=== PATIENT | female | born 1965 | race Caucasian/White ===

== ENCOUNTER 2017-03-13 17:50 | Observation (INO) | payer BC ==
[~2017-03-13] VITALS: Ht 167.6 cm; Wt 64.3 kg
[~2017-03-13 17:50] MED LIST: ALBUTEROL SULF8.5 GM IH; ESTROGEN; EVAMIST8.1 ML TP; LEVAQUIN750 MG PO; LORAZEPAM1 MG PO; MACROBID100 MG PO; PERCOCET 5/31 TABLET PO; SYNTHROID50 MCG PO; TYLENOL REGULA325 MG PO
[2017-03-13 18:48] LABS: EOSINOPHIL (%) 1.2 % (0-5); EOSINOPHIL COUNT 0.1 K/uL (0-0.3); HEMATOCRIT 37.8 % (36.0-46.0); IMMATURE GRANULOCYTE (%) 0.3 % (0.0-0.7); INSTRUMENT ABS NEUTROPHIL CT 5.9 K/uL; LYMPHOCYTE COUNT 0.3 K/uL (1.0-2.8); MCH 29.6 PG (29.0-34.0); MCHC 34.4 G/DL (30.0-36.0); MCV 86.1 FL (83-99); MEAN PLAT.VOLUME 8.8 uM^3 (9.5-12.4); MONOCYTE (%) 3.5 % (3-12); MONOCYTE COUNT 0.2 K/uL (0-0.8); NEUTROPHIL COUNT 5.9 K/uL (1.8-6.4); PLATELET COUNT 199 K/uL (156-360); RBC DIS.WIDTH-CV 11.5 % (11.8-14.6); RED BLOOD COUNT 4.39 M/uL (3.80-5.20); WHITE BLOOD COUNT 6.6 K/uL (4.1-10.2)
[2017-03-13 18:55] LABS: CHLORIDE 103 mEq/L (99-109); POTASSIUM 3.5 mEq/L (3.7-5.4); SODIUM 139 mEq/L (136-147)
[2017-03-13 18:57] LABS: GLUCOSE 107 mg/dL (70-99)
[2017-03-13 18:59] LABS: ANION GAP 12 MEQ/L (2-14); TOTAL BILIRUBIN 0.4 mg/dL (0.0-1.0)
[2017-03-13 19:01] LABS: ALKALINE PHOSPHATASE 77 IU/L (3-129); GFR ESTIMATE (CALCULATED) > 59 mL/min/
[2017-03-13 19:02] LABS: UREA NITROGEN (BUN) 11 mg/dL (9-23)
[2017-03-13 19:04] LABS: LIPASE 40 U/L (1.0-51.0)
[2017-03-13 19:27] LABS: ADD MIUA? YES; BILIRUBIN NEGATIVE; BLOOD SMALL; COLOR COLORLESS ((YELLOW)); GLUCOSE (STRIP) NEGATIVE; KETONES NEGATIVE; LEUKOCYTES NEGATIVE; NITRITE NEGATIVE; PROTEIN (STRIP) NEGATIVE; SPECIFIC GRAVITY 1.002 (1.000-1.030); UROBILINOGEN 0.2 MG/DL (0.2-1.0)
[2017-03-13 19:37] LABS: BACTERIA NONE SEEN /HPF; EPITHELIAL CELLS RARE /HPF; MUCUS NONE SEEN /LPF; RED BLOOD CELLS 0-5 /HPF (0-5); UCUL ADDED? NO; WHITE BLOOD CELLS 0-5 /HPF (0-5)
[2017-03-13] MEDS ORDERED: NITROFURANTOIN100 M3 PO (22:06)
[2017-03-13] MEDS ORDERED: VITAMIN B122500 MCG PO (22:08)
[2017-03-14 01:00] VITALS: BP 106/60
[2017-03-14 03:55] VITALS: BP 106/63
[2017-03-14 09:00] VITALS: BP 131/78
[2017-03-14 10:33] LABS: HEMATOCRIT 32.1 % (36.0-46.0); MCH 30.4 PG (29.0-34.0); MCHC 34.3 G/DL (30.0-36.0); MCV 88.7 FL (83-99); PLATELET COUNT 146 K/uL (156-360); RBC DIS.WIDTH-CV 11.7 % (11.8-14.6); RBC DIS.WIDTH-SD 37.9 % (39-53); RED BLOOD COUNT 3.62 M/uL (3.80-5.20); WHITE BLOOD COUNT 3.5 K/uL (4.1-10.2)
[2017-03-14 10:54] LABS: ANION GAP 6 MEQ/L (2-14); CHLORIDE 110 MEQ/L (99-109); GFR ESTIMATE (CALCULATED) > 59 mL/min/; GLUCOSE 89 mg/dL (70-99); POTASSIUM 3.3 MEQ/L (3.7-5.4); SAMPLE HEMOLYSIS CHECK 0; SAMPLE ICTERIC CHECK 0; SAMPLE LIPEMIA CHECK 0; SODIUM 142 MEQ/L (136-147); UREA NITROGEN (BUN) 6 mg/dL (9-23)
[2017-03-14 11:02] VITALS: BP 135/80
[2017-03-14 13:56] VITALS: BP 136/72
[2017-03-14] MEDS ORDERED: CEFTIN500 MG PO (14:26)
[2017-03-14] MEDS ORDERED: TAMSULOSIN HCL0.4 MG PO (14:26)
[2017-03-14] MEDS ORDERED: TORADOL10 MG PO (14:29)
== END 2017-03-14 15:34 | disposition home or self-care (01) ==
LOC: EME 17:50 → EDOF 23:12 → 5WEST 23:12 → ENRESERV 23:14 → 5WEST 03-14 00:51
PROVIDERS: Emergency Medicine; Physician Assistant Medical
DX: N39.0 Urinary tract infection, site not specified (principal); R50.9 Fever, unspecified; N20.0 Calculus of kidney; R20.2 Paresthesia of skin; E03.9 Hypothyroidism, unspecified; M54.5 Low back pain; Z90.710 Acquired absence of both cervix and uterus; Z88.0 Allergy status to penicillin; Z88.5 Allergy status to narcotic agent
CPT/HCPCS: 70450; 71020; 74176; 80048; 80053; 81003; 83605; 83690; 85025; 85027; 87040; 87086; 99281; 99284; G0378; J0696; J1885; J2405; J7030; J7050